=== PATIENT | female | born 1975 | race Caucasian/White ===

== ENCOUNTER 2019-06-30 16:13 | Emergency (ER) | payer SELFPAY ==
[2019-06-30] MEDS ORDERED: HYDROmorphone 1 MG/ML Syringe IM ONE (17:16)
--- NOTE | 2019-06-30 17:21 | EDM.PDOC ---
ED HPI GENERAL MEDICAL PROBLEM - General Chief Complaint: Lower Extremity Injury/Pain Stated Complaint: LT PINKY TOE INJ Time Seen by Provider: 06/30/19 16:22 Source of Information: Reports: Patient, RN Notes Reviewed History Limitations: Reports: No Limitations - History of Present Illness INITIAL COMMENTS - FREE TEXT/NARRATIVE: Patient is a 43-year-old female who presents to the ED for left pinky toe injury. Patient states approximately 45 minutes prior to arrival to the ER she stubbed her left pinky toe on a pop box. She states she was barefoot when this happened. She noted a pop and is mild swelling and bruising noted to the area. No obvious deformity, there are no bone sticking out of the skin. Toenail is intact. No numbness or tingling distal to the injury. No pain further up the leg or or otherwise. Patient still can wiggle toes without much problem. - Related Data Allergies Allergy/AdvReac Type Severity Reaction Status Date / Time Latex, Natural Rubber Allergy Difficulty Verified 06/30/19 16:22 Breathing Past Medical History HEENT History: Reports: Impaired Vision Respiratory History: Reports: Asthma BASIN CLEANER History: Reports: Other BASIN CLEANER History: - Infectious Disease History Infectious Disease History: Reports: Chicken Pox - Past Surgical History Female Surgical History: Reports: Tubal Ligation Social & Family History - Family History Family Medical History: Noncontributory - Tobacco Use Smoking Status *Q: Never Smoker - Caffeine Use Caffeine Use: Reports: None Review of Systems - Review of Systems Review Of Systems: Comprehensive ROS is negative, except as noted in HPI. ED EXAM, GENERAL - Physical Exam Exam: See Below Exam Limited By: No Limitations General Appearance: Alert, WD/WN, No Apparent Distress Respiratory/Chest: No Respiratory Distress, Lungs Clear, Normal Breath Sounds, No Accessory Muscle Use, Chest Non-Tender Cardiovascular: Normal Peripheral Pulses, Regular Rate, Rhythm, No Murmur Peripheral Pulses: 3+: Dorsalis Pedis (L), Dorsalis Pedis (R) Extremities: Normal Inspection, Normal Range of Motion, Normal Capillary Refill Neurological: Alert, Oriented, Normal Cognition, No Motor/Sensory Deficits Psychiatric: Normal Affect, Normal Mood Skin Exam: Warm, Dry, Intact, Normal Color, No Rash, Ecchymosis (to the base of the 5th toe on the left foot.) ED TRAUMA EXTREMITY PROCEDURES - Joint Reduction Left Toes Sedation: Other (1mg IM dilaudid) Pre-Procedure NV Status: Normal Post-Procedure NV Status: Normal Technique: Traction/Counter Traction Number of Attempts: 1 Post-Reduction Imaging: Acceptably Reduced (appeared to be in better anatomic positioning that prior to reduction.) Joint Reduction Complications: No - Splinting Left 5th Digit Splint Site: left 5th digig Pre-Procedure NV Status: Normal Post-Procedure NV Status: Normal Splint Material: Sylwia Tape (to left 4th digit) Applied & Form Fitted By: Provider Provider Post-Splint Application NV Check: NV Status Normal, Good Position Complications: No Course - Vital Signs Last Recorded V/S: Last Vital Signs Temp 97.1 F 06/30/19 16:23 Pulse 86 06/30/19 16:23 Resp 16 06/30/19 16:23 BP 150/72 H 06/30/19 16:23 Pulse Ox 97 06/30/19 16:23 - Orders/Labs/Meds Orders: Active Orders 24 hr Category Date Time Status Toes Fifth Digit Lt T4 [CR] Stat Exams 06/30/19 16:29 Ordered Toes Fifth Digit Lt T4 [CR] Stat Exams 06/30/19 18:03 Ordered Meds: Medications Discontinued Medications Generic Name Dose Route Start Last Admin Trade Name Chloé PRN Reason Stop Dose Admin Hydromorphone HCl 1 mg 06/30/19 17:16 06/30/19 17:36 Dilaudid IM 06/30/19 17:17 1 mg ONETIME ONE Administration - Re-Assessments/Exams Free Text/Narrative Re-Assessment/Exam: 06/30/19 17:20 Patient presents to the ED for a left pinky toe injury. Did get x-rays at time of triage, and this does demonstrate a slightly displaced mid interphalangeal break of the fifth toe digit. 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 She has been given 1 mg IM injection for pain relief. 06/30/19 18:16 Did order post reduction films for the reduction of the toe, but x-ray tech is not in-house and it would take her quite a while to get here, patient would like to go home. She states she will follow-up with her regular provider as needed for any lingering issues. When I did reduce the toe, I felt a pop and it looked to be straighter than it was prior to reduction. On exam it looks to be in better anatomical position. Departure - Departure Time of Disposition: 17:22 Disposition: Home, Self-Care 01 Condition: Good Clinical Impression: Fracture of fifth toe, left, closed Qualifiers: Encounter type: initial encounter Qualified Code(s): S92.502A - Displaced unspecified fracture of left lesser toe(s), initial encounter for closed fracture - Discharge Information *PRESCRIPTION DRUG MONITORING PROGRAM REVIEWED*: Yes *COPY OF PRESCRIPTION DRUG MONITORING REPORT IN PATIENT YUNIOR: No Instructions: Toe Fracture, [id number] Referrals: PCP,None [Primary Care Provider] - Forms: ED Department Discharge, ED Return to Work/School Form Additional Instructions: You have been evaluated in the ED for your left pinky toe injury. Your x-ray demonstrated a fracture of one of the bone in your left pinky toe, this was reduced in the ED to make sure that it heals correctly. Please use ice as tolerated to the affected area. You may take Tylenol 500 mg or ibuprofen 600mg q6 hrs for pain relief. Please do so until you have a tolerable level of pain with activity. Do not exceed 4000mg Tylenol, Do not exceed 3200mg ibuprofen in a 24 hour time period. You were given a prescription for a strong pain medication, hydrocodone/ acetaminophen 5/325, please take 1 tab every 6 hours as needed for pain not relieved by Tylenol or ibuprofen alone. Please note this does contain Tylenol in it, so do not take more than 4000 mg in a 24-hour time span. These medications can be addictive, so please take as few as possible to achieve adequate pain control. These meds can also be quite constipating, recommend that you increase your oral fluid intake and take a stool softener like MiraLAX while taking these medications. Please call Ortho for follow-up and further evaluation Dr. Dejesus is our orthopedic surgeon, his office number is [phone]. Please call and set up an appointment as soon as possible for further management. This is in case he would deem the need for a pin in the bone of the toe to help promote healing. Please return to ED if your symptoms should change or worsen. Sepsis Event Note - Evaluation Sepsis Screening Result: No Definite Risk - Focused Exam Vital Signs: Vital Signs Temp Pulse Resp BP Pulse Ox 06/30/19 16:23 97.1 F 86 16 150/72 H 97 Date Exam was Performed: 06/30/19 Time Exam was Performed: 18:16 - My Orders Last 24 Hours: My Active Orders 06/30/19 16:29 Toes Fifth Digit Lt T4 [CR] Stat 06/30/19 18:03 Toes Fifth Digit Lt T4 [CR] Stat - Assessment/Plan Last 24 Hours: My Active Orders 06/30/19 16:29 Toes Fifth Digit Lt T4 [CR] Stat 06/30/19 18:03 Toes Fifth Digit Lt T4 [CR] Stat
--- NOTE | 2019-07-01 11:23 | CR ---
Left 5th toe: 3 views centered to the left 5th toe were obtained. Comparison: No previous toe study. Slightly angulated and displaced fracture is noted within the distal proximal phalanx. Soft tissue swelling is noted Impression: 1. Left 5th toe fracture as noted above. Diagnostic code #3 This report was dictated in MDT
== END 2019-06-30 18:17 | disposition home or self-care (01) ==
LOC: JD.ED 16:13
DX: S92.512A Displaced fracture of proximal phalanx of left lesser toe(s), initial encounter for closed fracture (principal); J45.909 Unspecified asthma, uncomplicated; Z91.040 Latex allergy status; W22.8XXA Striking against or struck by other objects, initial encounter
CPT/HCPCS: 28515; 73660; 96372; 99283; J1170

== ENCOUNTER 2021-02-17 07:21 | Day surgery (SDC) | payer BC ==
[~2021-02-17 07:21] MED LIST: Lactated Ringers 1,000 ML IV SCH; Lidocaine 1%/Sod Bicarbonate in NS 8.4% 1 ML Syringe IDERM PRN; Sodium Chloride 0.9% 10 ML Syringe FLUSH SCH
[2021-02-17] MEDS ORDERED: Lidocaine 1% with EPINEPHrine 1:100,000 20 ML MDV ONE (07:24)
[2021-02-17] MEDS ORDERED: Sodium Chloride 0.9% 50 ML SDV ONE (07:24)
[2021-02-17] MEDS ORDERED: Bupivacaine 0.5% 30 ML SDV ONE (07:24)
--- NOTE | 2021-02-17 07:58 | PCM.OPNOTE ---
- General Post-Op/Procedure Note Date of Surgery/Procedure: 02/17/21 Operative Procedure(s): Laparoscopic assisted vaginal hysterectomy. Removal of residual fallopian tubes Findings: Intraabdominal evaluation shows normal appearance of the uterus and ovaries bilaterally. Evidence of prior tubal ligation Pre Op Diagnosis: Abnormal uterine bleeding - declined medical therapy. BMI of 46 Post-Op Diagnosis: Same Anesthesia Technique: General ET Tube Primary Surgeon: Hannah Duval Secondary Surgeon: Neetu Bolaños Anesthesia Provider: Rohan Brian Reason Turning Lathe Tender Was Necessary: BMI of patient. Speed/safety of procedure Pathology: Cervix, uterus, fallopian tubes sent to pathology. Fluid Replacement, Intraop: 2,500 Output, Urine Amount: 100 EBL in mLs: 400 Complications: None Condition: Good Free Text/Narrative:: The risks, benefits, indications, potential complications, and alternatives were explained to the patient and informed consent obtained. The patient was taken to the Operating Room where general anesthesia was induced without complication. The patient was placed in dorsal lithotomy with Taye Stirrups and an exam under anesthesia revealed the findings detailed above. The patient was then prepped and draped in the usual sterile fashion. A sterile bivalve speculum was placed into the vagina and the anterior lip of the cervix was grasped with a single tooth tenaculum and a [employer] uterine manipulator was placed to allow uterine manipulation throughout the procedure. The speculum and single tooth tenaculum were removed from the vagina. A Matthews catheter was placed in sterile fashion. Attention was then turned to the patients abdomen where a Veress needle was carefully introduced into the peritoneal cavity while tenting the abdominal wall. Intraperitoneal placement was confirmed by free flow of saline into the abdomen from a syringe open to gravity and with a low intraabdominal pressure with insufflation of C02 gas on low flow. The gas was increased to high flow and a pneumoperitoneum was obtained with C02 gas to a pressure of 15 mm Hg. A 5 mm skin incision was made in a vertical fashion in the umbilical fold and a 5 mm blunt trocar was inserted into the abdomen with direct visualization of the laparoscope through the clear view trocar lens. 5 mm skin incisions were made in both the left and right lower quadrants approximately 10 cm lateral and 3 cm inferior to the umbilicus. 5 mm blunt trocars were inserted into the abdomen under direct visualization with care to avoid the abdominal wall vasculature. A blunt probe and grasper were inserted through the accessory ports and a survey of the abdomen revealed the findings detailed above. The residual portion of the right fallopian tube was elevated with the blunt graspers at the fimbriated end. The LigaSure was used to grasp, elevate, cauterize and transect the mesosalpinx from the fimbriated end toward the uterus to the level of the round ligament. This was the transected and removed through the 5 mm port. The round ligament on the right was then elevated, cauterized, and transected with the LigaSure. Hemostasis was noted. Next, the vesicouterine peritoneum was elevated gently with a blunt grasper and the LigaSure and blunt dissection were used dissect the vesicouterine peritoneum to make a bladder flap. Two more small bites along the right side of the uterus were made with the LigaSure to skeletonize the uterine artery. Hemostasis was noted. The exact same procedure was carried out on the left. The CO2 gas was turned off and the laparoscope was removed. Attention was then turned to the vaginal portion of the procedure. A short weighted speculum was placed in the vagina, and the cervix was grasped with a single tooth tenaculum. The cervix was injected circumferentially with approximately 15 cc of 1% lidocaine with dilute epinephrine. The cervix was then circumferentially incised with a scalpel. A Raytec was used to bluntly dissect the cervix circumferentially until an avascular plane was obtained. The posterior cul-de-sac was entered sharply without difficulty. A 0-Vicryl pop-off suture was placed at six o'clock to include the posterior vaginal mucosa and posterior peritoneum. This stitch was tagged with a straight clamp to help with vaginal cuff closure at the end of the case. The short weighted speculum was replaced by the long weighted speculum. The uterosacral ligaments were grasped on either side with the LigaSure, cauterized, and transected. The bladder was dissected off the pubovesical cervical fascia anteriorly with a sponge and blunt dissection. The anterior cul-de-sac was then entered sharply without difficulty. The cardinal ligaments were then serially clamped on both sides with the LigaSure, cauterized, and transected. The uterine arteries were then clamped with the LigaSure, cauterized, and transected. Hemostasis was then noted. The fundus and adnexa were confirmed to be free of any further peritoneal attachments and then were pulled out through the vagina. There was slight bleeding noted from patient's right apex which was controlled with several interrupted sutures of 0 Vicryl placed in a figure of eight fashion. Next, the posterior peritoneum was closed with a running, locked 0 Vicryl suture. The vaginal cuff was closed with two running 0 Vicryl sutures started at either apex and run towards the midline. Hemostasis was noted. Attention was then again turned to the abdomen. All members of the surgical team changed gloves. The laparoscope was again inserted and the abdomen was again insufflated with CO2. The pedicles were again visualized. Andrae seal was placed along the vaginal cuff. Hemostasis was confirmed. The patient was taken out of Trendelenburg position. The accessory trocars were removed under direct visualization. The pneumoperitoneum was allowed to escape. The umbilical trocar was removed and lastly the camera was removed from the abdomen under direct visualization to confirm no herniation into the port site. All skin incisions were re-approximated with 4-0 Monocryl and sealed with Dermabond. Hemostasis was noted. A total of 10 cc of 0.25% Marcaine was injected into the subcutaneous tissues surrounding the skin incisions for local anesthesia. The Matthews catheter was removed. All sponge, lap, needle, and instrument counts were correct x 2. The patient tolerated the procedure well and there were no complications.
--- NOTE | 2021-02-17 09:08 | PCM.PREANE ---
Preanesthetic Assessment - Procedure Proposed Procedure: Lap assisted vaginal hysterectomy - Anesthesia/Transfusion/Family Hx Anesthesia History: Prior Anesthesia Without Reaction Family History of Anesthesia Reaction: No Transfusion History: No Prior Transfusion(s) - Review of Systems General: No Symptoms Pulmonary: No Symptoms Cardiovascular: Dyspnea on Exertion Gastrointestinal: No Symptoms Neurological: No Symptoms Other: Reports: None - Physical Assessment NPO Status Date: 02/16/21 NPO Status Time: 00:00 Vital Signs: Last Vital Signs Temp 36.5 C 02/17/21 07:20 Pulse 72 02/17/21 07:20 Resp 18 02/17/21 07:20 BP 158/92 H 02/17/21 07:20 Pulse Ox 99 02/17/21 07:20 Height: 1.6 m Weight: 118.6 kg ASA Class: 3 Mental Status: Alert & Oriented x3 Airway Class: Mallampati = 2 Dentition: Reports: Normal Dentition Thyro-Mental Finger Breadths: 2 Mouth Opening Finger Breadths: 2 ROM/Head Extension: Full Lungs: Clear to Auscultation, Normal Respiratory Effort Cardiovascular: Regular Rate, Regular Rhythm - Lab Values: Laboratory Last Values WBC 7.53 K/mm3 (3.98-10.04) 02/17/21 07:25 RBC 4.82 M/mm3 (3.98-5.22) 02/17/21 07:25 Hgb 13.2 gm/dl (11.2-15.7) 02/17/21 07:25 Hct 41.1 % (34.1-44.9) 02/17/21 07:25 MCV 85.3 fl (79.4-94.8) 02/17/21 07:25 MCH 27.4 pg (25.6-32.2) 02/17/21 07:25 MCHC 32.1 g/dl (32.2-35.5) L 02/17/21 07:25 RDW Std Deviation 45.3 fL (36.4-46.3) 02/17/21 07:25 Plt Count 303 K/mm3 (182-369) 02/17/21 07:25 MPV 8.7 fl (9.4-12.3) L 02/17/21 07:25 Neut % (Auto) 56.4 % (34.0-71.1) 02/17/21 07:25 Lymph % (Auto) 34.4 % (19.3-51.7) 02/17/21 07:25 Irwin % (Auto) 6.5 % (4.7-12.5) 02/17/21 07:25 Eos % (Auto) 2.3 (0.7-5.8) 02/17/21 07:25 Baso % (Auto) 0.3 % (0.1-1.2) 02/17/21 07:25 Neut # (Auto) 4.25 K/mm3 (1.56-6.13) 02/17/21 07:25 Lymph # (Auto) 2.59 K/mm3 (1.18-3.74) 02/17/21 07:25 Irwin # (Auto) 0.49 K/mm3 (0.24-0.36) H 02/17/21 07:25 Eos # (Auto) 0.17 K/mm3 (0.04-0.36) 02/17/21 07:25 Baso # (Auto) 0.02 K/mm3 (0.01-0.08) 02/17/21 07:25 Sodium 142 mEq/L (136-145) 02/17/21 07:25 Potassium 3.6 mEq/L (3.5-5.1) 02/17/21 07:25 Chloride 104 mEq/L (98-107) 02/17/21 07:25 Carbon Dioxide 29 mEq/L (21-32) 02/17/21 07:25 Anion Gap 12.6 (5-15) 02/17/21 07:25 BUN 11 mg/dL (7-18) 02/17/21 07:25 Creatinine 0.8 mg/dL (0.55-1.02) 02/17/21 07:25 Est Cr Clr Drug Dosing 75.01 mL/min 02/17/21 07:25 Estimated GFR (MDRD) > 60 mL/min (>60) 02/17/21 07:25 BUN/Creatinine Ratio 13.8 (14-18) L 02/17/21 07:25 Glucose 108 mg/dL (70-99) H 02/17/21 07:25 Calcium 9.2 mg/dL (8.5-10.1) 02/17/21 07:25 Blood Type B POSITIVE 02/17/21 07:25 Gel Antibody Screen Negative 02/17/21 07:25 - Allergies Allergies/Adverse Reactions: Allergies Allergy/AdvReac Type Severity Reaction Status Date / Time Latex, Natural Rubber Allergy Difficulty Verified 02/17/21 07:57 Breathing - Blood Blood Available: Yes Product(s) Available: PRBC - Anesthesia Plan Pre-Op Medication Ordered: None - Acknowledgements Anesthesia Type Planned: General Anesthesia Pt an Appropriate Candidate for the Planned Anesthesia: Yes Alternatives and Risks of Anesthesia Discussed w Pt/Guardian: Yes Pt/Guardian Understands and Agrees with Anesthesia Plan: Yes PreAnesthesia Questionnaire HEENT History: Reports: Impaired Vision Cardiovascular History: Reports: None Respiratory History: Reports: Asthma Gastrointestinal History: Reports: None Genitourinary History: Reports: None OSTEOPATHY DOCTOR History: Reports: Other OB/BYN History: Musculoskeletal History: Reports: None Neurological History: Reports: None Psychiatric History: Reports: None Endocrine/Metabolic History: Reports: None Hematologic History: Reports: None Immunologic History: Reports: None Oncologic (Cancer) History: Reports: None Dermatologic History: Reports: None - Infectious Disease History Infectious Disease History: Reports: Novel Coronavirus - Past Surgical History Head Surgeries/Procedures: Reports: None HEENT Surgical History: Reports: None Cardiovascular Surgical History: Reports: None Respiratory Surgical History: Reports: None GI Surgical History: Reports: EGD Female Surgical History: Reports: Tubal Ligation Male Surgical History: Reports: None Endocrine Surgical History: Reports: None Neurological Surgical History: Reports: None Musculoskeletal Surgical History: Reports: None Dermatological Surgical History: Reports: None - SUBSTANCE USE Tobacco Use Status *Q: Never Tobacco User Tobacco Use Within Last Twelve Months: No Second Hand Smoke Exposure: No Days Per Week of Alcohol Use: 1 Number of Drinks Per Day: 0 Total Drinks Per Week: 0 Recreational Drug Use History: No - HOME MEDS Home Medications: Home Meds . [No Known Home Meds] 02/16/21 [History] - CURRENT (IN HOUSE) MEDS Current Meds: Current Medications Lactated Ringer's (Ringers, Lactated) 1,000 mls @ 125 mls/hr IV ASDIRECTED MIGUEL A Stop: 02/17/21 23:00 Last Admin: 02/17/21 08:17 Dose: 125 mls/hr Documented by: Lidocaine/Sodium Bicarbonate (Lidocaine 1%/Sod Bicarbonate In Ns 8.4% 1 Ml Syringe) 0.25 ml IDERM ONETIME PRN PRN Reason: Prior to IV Start Stop: 02/17/21 18:00 Sodium Chloride (Sodium Chloride 0.9% 10 Ml Syringe) 10 ml FLUSH 0900,2100 MIGUEL A Stop: 02/17/21 18:00 Discontinued Medications Bupivacaine HCl (Bupivacaine 0.5% 30 Ml Sdv) Confirm Administered Dose 30 ml .ROUTE .STK-MED ONE Stop: 02/17/21 07:25 Lidocaine/Epinephrine (Lidocaine 1% With Epinephrine 1:100,000 20 Ml Mdv) Con firm Administered Dose 20 ml .ROUTE .STK-MED ONE Stop: 02/17/21 07:25 Sodium Chloride (Sodium Chloride 0.9% 50 Ml Sdv) Confirm Administered Dose 50 ml .ROUTE .STK-MED ONE Stop: 02/17/21 07:25
[2021-02-17] MEDS ORDERED: fentaNYL 250 MCG/5 ML SDV ONE (09:13)
[2021-02-17] MEDS ORDERED: Rocuronium 50 MG/5 ML Vial ONE (09:13)
[2021-02-17] MEDS ORDERED: Ondansetron 4 MG/2 ML SDV ONE (09:13)
[2021-02-17] MEDS ORDERED: Midazolam 1 MG/ML 2 ML SDV ONE (09:13)
[2021-02-17] MEDS ORDERED: Dexamethasone 4 MG/ML 5 ML MDV ONE (09:14)
[2021-02-17] MEDS ORDERED: Ketorolac 30 MG/ML SDV ONE (09:14)
[2021-02-17] MEDS ORDERED: Lidocaine 1% 4 ML ONE (09:14)
[2021-02-17] MEDS ORDERED: Propofol 200 MG/20 ML SDV ONE (09:14)
[2021-02-17] MEDS ORDERED: ceFAZolin 1 GM Vial ONE ×2 (09:15→09:41)
[2021-02-17] MEDS ORDERED: HYDROmorphone 0.5 MG/0.5 ML Syringe ONE ×2 (09:59→10:00)
[2021-02-17] MEDS ORDERED: Lactated Ringers 1,000 ML ONE ×2 (11:04→11:14)
[2021-02-17] MEDS ORDERED: fentaNYL 100 MCG/2 ML SDV IVPUSH PRN (12:03)
--- NOTE | 2021-02-17 12:05 | PCM.POSTAN ---
POST ANESTHESIA ASSESSMENT - MENTAL STATUS Mental Status: Somnolent - VITAL SIGNS Vital Signs: Last Vital Signs Temp 36.4 C 02/17/21 11:57 Pulse 58 L 02/17/21 11:57 Resp 13 02/17/21 11:57 BP 128/61 02/17/21 11:57 Pulse Ox 99 02/17/21 11:57 - RESPIRATORY Respiratory Status: Respiratory Rate WNL, Airway Patent, O2 Saturation Stable, Supplemental Oxygen - CARDIOVASCULAR CV Status: Pulse Rate WNL, Blood Pressure Stable - GASTROINTESTINAL GI Status: No Symptoms - PAIN Pain Score: 0 - POST OP HYDRATION Hydration Status: Adequate & Stable - OBSERVATIONS Free Text/Narrative:: no anesthesia complications noted
[2021-02-17] MEDS ORDERED: Acetaminophen/oxyCODONE 325-5 MG Tab PO ONE (14:00)
[2021-02-17] MEDS ORDERED: Ondansetron 4 MG/2 ML SDV IVPUSH ONE (14:16)
== END 2021-02-17 16:00 | disposition home or self-care (01) ==
LOC: JD.SDS 07:21
PROVIDERS: ATTEND Obstetrics & Gynecology
DX: N70.11 Chronic salpingitis (principal); N83.8 Other noninflammatory disorders of ovary, fallopian tube and broad ligament; J45.909 Unspecified asthma, uncomplicated; Z91.040 Latex allergy status
CPT/HCPCS: 36415; 58552; 80048; 85025; 86850; 86900; 86901; A9270; J0690; J1100; J1170; J1885; J2250; J2370; J2405; J2704; J3010; J3490; J7120; 00944

== ENCOUNTER 2024-12-08 12:47 | Emergency (ER) | payer BC, OTHER ==
[2024-12-08] MEDS: Sodium Chloride 0.9% 10 ML Syringe FLUSH ONE (13:45)
[2024-12-08] MEDS: Iopamidol 612 MG/ML 100 ML Bottle IVPUSH ONE (13:45)
[2024-12-08] MEDS: Ondansetron 4 MG/2 ML SDV IVPUSH ONE (14:06)
[2024-12-08] MEDS: Sodium Chloride 0.9% 10 ML Syringe FLUSH PRN (14:06)
== END 2024-12-08 16:04 | disposition home or self-care (01) ==
LOC: JD.ED 12:47
DX: R11.2 Nausea with vomiting, unspecified (principal); M54.50 Low back pain, unspecified; J45.909 Unspecified asthma, uncomplicated; Z91.040 Latex allergy status; Z86.16 Personal history of COVID-19
CPT/HCPCS: 74177; 96361; 96374; 99284; J2405; J7030; Q9967; 99283